=== PATIENT | female | born 1935 | race Caucasian/White ===

== ENCOUNTER 2019-08-11 12:49 | Emergency (ER) | payer MEDICARE ==
[~2019-08-11] VITALS: Ht 157.5 cm; Wt 70.0 kg
[2019-08-11] MEDS ORDERED: LOSA50TA88 PO (13:10)
[2019-08-11] MEDS ORDERED: CRES20TA2 PO (13:10)
[2019-08-11 14:30] LABS: BASO % 0.4 % (0.0-1.0); EOS % 0.4 % (0.0-3.0); HEMATOCRIT 46.1 % (36.0-47.0); LYMPH # 1.5 10^3/uL (1.5-5.0); LYMPH % 19.7 % (24.0-44.0); MEAN CORPUSCULAR HEMOGLOBIN 29.7 pg (27.0-33.0); MEAN CORPUSCULAR HGB CONC 32.5 g/dl (32.0-36.5); MEAN CORPUSCULAR VOLUME 91.3 fl (80.0-96.0); MONO # 0.4 10^3/uL (0.0-0.8); NEUTROPHILS # 5.8 10^3/uL (1.5-8.5); NEUTROPHILS % 74.2 % (36.0-66.0); PLATELET COUNT, AUTOMATED 260 10^3/uL (150-450); RED BLOOD COUNT 5.05 10^6/uL (4.00-5.40); WHITE BLOOD COUNT 7.8 10^3/uL (4.0-10.0)
[2019-08-11 15:01] LABS: ALBUMIN 4.1 GM/DL (3.2-5.2); BILIRUBIN,DIRECT 0.1 MG/DL (0.0-0.2); BILIRUBIN,TOTAL 0.5 MG/DL (0.2-1.0); CALCIUM LEVEL 10.1 MG/DL (8.8-10.2); CREATININE FOR GFR 1.25 MG/DL (0.55-1.30); GLOMERULAR FILTRATION RATE 43.8 (>32); POTASSIUM SERUM 3.9 MEQ/L (3.5-5.1); TOTAL PROTEIN 7.5 GM/DL (6.4-8.2)
--- NOTE | 2019-08-11 16:08 | REP ---
RIGHT UPPER QUADRANT: Real-time sonographic evaluation of the right upper quadrant is performed. Multiple gallstones are seen in the gallbladder. There is no gallbladder thickening or pericholecystic fluid. There is no intrahepatic or extrahepatic biliary dilatation, common bile duct measuring 2 mm. The liver demonstrates no gross mass. The pancreas is not seen due to overlying bowel gas. Right kidney demonstrates no hydronephrosis with normal size 9.7 cm in length. Cyst in the upper pole of the right kidney contains septations and measures 4.9 x 5.5 x 5.5 cm. IMPRESSION: Multiple gallstones in the gallbladder without gallbladder wall thickening, pericholecystic fluid or biliary dilatation. Electronically Signed by Russell Jerome MD 08/11/2019 07:37 P
[2019-08-11 16:17] VITALS: BP 117/68
--- NOTE | 2019-08-13 07:45 | ECGEPIP ---
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
== END 2019-08-11 16:20 | disposition home or self-care (01) ==
LOC: M ED 12:49
DX: R10.9 Unspecified abdominal pain (principal); K80.20 Calculus of gallbladder without cholecystitis without obstruction; I10 Essential (primary) hypertension; I25.2 Old myocardial infarction; E78.5 Hyperlipidemia, unspecified; Z95.5 Presence of coronary angioplasty implant and graft; Z95.1 Presence of aortocoronary bypass graft; Z79.899 Other long term (current) drug therapy
CPT/HCPCS: 76705; 80048; 80076; 81001; 82150; 83605; 83690; 85025; 87086; 93005; 99284; G0463